=== PATIENT | female | born 1940 | race Caucasian/White ===

== ENCOUNTER 2024-06-23 08:22 | Outpatient (CLI) | payer MEDICARE, BC, SELFPAY | END 2024-06-23 08:23 | disposition home or self-care (01) | LOC: AMB 06-24 04:24 | PROVIDERS: PCP Family Medicine; Visit Provider Family Medicine | DX: R53.1 Weakness (principal); R56.9 Unspecified convulsions; U07.1 COVID-19 | CPT/HCPCS: A0425; A0427 ==

== ENCOUNTER 2024-06-23 09:00 | Emergency (ER) | payer MEDICARE, BC, SELFPAY ==
[2024-06-23 09:10] VITALS: BP 116/66; PULSE 60; RESP 16; TEMP 36.2; O2SAT 96; BMI 22.3
--- NOTE | 2024-06-23 09:48 | ED_ITS ---
HPI - General Adult General Chief complaint: Weakness Stated complaint: +Covid, passed out Time Seen by Provider: 06/23/24 09:48 History of Present Illness HPI narrative: pt has had covid since saturday, is on paxlovid. concerned pt may have had a seizure this am . per ems daughter saw seizure activity that lasted a few seconds, arms shook and eyes rolled. pt was talking right after that. pt c/o weakness and diarrhea today. 84-year-old woman presenting to the emergency department with concern of seizure. Does not have a seizure history. Initiated on Paxlovid following diagnosis of COVID 3 days ago. Has been feeling more weak along with diarrhea today. Has not had of measured fever. No chest pain or shortness of breath. Around the time of bathroom in seems to have passed out briefly and shock. Was very quickly at prior level of alertness; not demonstrating postictal activity as described. She is not complaining of significant abdominal pain. Related Data Home Medications ?Medication ?Instructions ?Recorded ?Confirmed metoprolol succinate 25 mg mg PO 08/01/23 07/08/24 tablet,extended release 24 hr multivitamin 1 tab PO QAM 08/01/23 07/08/24 tocophersolan (vitamin E TPGS) PO 08/01/23 07/08/24 atorvastatin 20 mg tablet mg PO 07/08/24 07/08/24 Allergies Allergy/AdvReac Type Severity Reaction Status Date / Time milk Allergy Verified 07/08/24 09:37 Sulfa (Sulfonamide Allergy Verified 07/08/24 09:37 Antibiotics) Review of Systems Status of ROS: Reports: 6 or more systems reviewed and unremarkable except as noted in History and below Exam Narrative: Exam Narrative: Pleasant. NAD. Skin is warm and dry. Extremities are well perfused without edema. Lungs with trace crepitus generally. Breath sounds throughout. Heart in slowed rate. Regular rhythm. Cranial nerves 2-12 are intact. No nystagmus. Pupils are equal and briskly reactive. Moving all extremities without difficulty. Appears to have good strength. Abdomen is soft and nontender normal bowel sounds. Responding quickly to questions. Const: Vital Signs, click to edit/add: Vital Signs - 24 hr 06/23/24 09:10 06/23/24 10:57 Temperature 97.2 F L Pulse Rate [Pulse Oximeter] 60 Pulse Rate [orthos tatic lying Right] 58 L Pulse Rate [orthos tatic sitting] 61 Pulse Rate [orthos tatic standing] 64 Respiratory Rate 16 Blood Pressure [Ri ght Upper Arm] 116/66 Blood Pressure [or thostatic lying Ri ght Arm] 126/61 Blood Pressure [or thostatic sitting] 123/78 Blood Pressure [or thostatic standing ] 115/61 Pulse Oximetry 96 Oxygen Delivery Me thod Room Air Documenting provider has reviewed patient's vital signs: yes Course Vital Signs Vital signs: Initial Vital Signs Temperature 97.2 F L 06/23/24 09:10 Temperature Source Temporal Artery Scan 06/23/24 09:10 Pulse Rate 60 06/23/24 09:10 Respiratory Rate 16 06/23/24 09:10 Blood Pressure 116/66 06/23/24 09:10 Blood Pressure Mean 82 06/23/24 09:10 Blood Pressure Position Supine 06/23/24 09:10 Pulse Oximetry 96 06/23/24 09:10 Oxygen Delivery Method Room Air 06/23/24 09:10 Vital Signs Temperature 97.2 F L 06/23/24 09:10 Pulse Rate 60 06/23/24 09:10 Respiratory Rate 16 06/23/24 09:10 Blood Pressure 116/66 06/23/24 09:10 Pulse Oximetry 96 06/23/24 09:10 Oxygen Delivery Method Room Air 06/23/24 09:10 Temperature 97.2 F L 06/23/24 09:10 Pulse Rate 58 L 06/23/24 10:57 Respiratory Rate 16 06/23/24 09:10 Blood Pressure 126/61 06/23/24 10:57 Pulse Oximetry 96 06/23/24 09:10 Oxygen Delivery Method Room Air 06/23/24 09:10 Medications Administered Medications: Discontinued Medications Generic Name Dose Route Start Last Admin Trade Name Freq PRN Reason Stop Dose Admin Sodium Chloride 1,000 mls @ 1,000 mls/hr 06/23/24 10:27 06/23/24 11:03 0.9 % Sodium Chloride 1000 Ml IV 06/23/24 11:26 1,000 mls/hr .Q1H ONE Administration Medical Decision Making MDM Narrative Medical decision making narrative: Does appear to have been brief shaking related to syncope or near-syncope. Complicated perhaps by metoprolol. Likely with some degree of dehydration. She would appreciate IV fluids. Would monitor for arrhythmia. Initial EKG as noted below. Discussed checking labs otherwise but does not sound to have had such copious diarrhea that likely altered chemistries. Not noted to have significant history of anemia or needing electrolyte/potassium replacement/supplementation. Symptoms and timing is convincing enough that I do not think needs head imaging. Does not have headache or persistent symptoms to suggest other intracranial pathology. Initiated IV. Monitor the emergency department without further event. Feels improved. See patient discharge plan for further discussion Medical Records Medical records reviewed: Yes I reviewed the patient's medical records ECG Data Attestation: I personally reviewed and interpreted this ECG as follows: (Sinus bradycardia - does appear to be a right bundle-branch block. Rate of 57. No priors for comparison) Discharge Plan Discharge Clinical Impression: Syncope Patient Disposition: Home w/ Parent or Adult Condition: Improved Additional Instructions: I am happy you're feeling better. Stay well-hydrated. This sounds to have been possibly an orthostatic syncopal event on top of illness. I do not think you had a seizure. Your EKG other than being a little slow in heart rate, which can be explained by metoprolol, is relatively unremarkable. Be seen/return for repeat event, new and focal weakness, chest pain, worsening shortness of breath. Prescriptions: No Action metoprolol succinate 25 mg tablet extended release 24 hr PO multivitamin Tablet 1 tab PO QAM tocophersolan (vitamin E TPGS) PO atorvastatin 20 mg tablet PO Follow Up/Referrals: Deepa Villagran MD [Primary Care Provider] - Stand Alone Forms: [employer] Info Instructions
[2024-06-23 10:57] VITALS: BP 115/61; BP 123/78; BP 126/61; PULSE 58; PULSE 61; PULSE 64
[2024-06-23] MEDS: 0.9 % SODIUM CHLORIDE 1000 ml 1,000 ML IV (11:03)
--- OUTSIDE RECORDS SUMMARY | 2024-06-23 11:03 | XMS_ITS | Clinical Summary ---
Author Organization [facility] Address [place], [place] [address] Care Team Providers Care Rn Eligibility Name Role Phone Deepa Villagran MD Primary Care Provide r Allergies Active Allergy Reactions Criticality Noted Date Comments Lactose Cough 04/22/2008 Milk Runny Nose 05/12/2018 Pollen Extracts Other - Describe In Comment Field 05/22/2010 Sulfa (Sulfonamide Antibiotics) Rash Medium 05/04/2017 Medications Medication Sig Dispensed Refills Start Date End Date Status multivitamin (MVI) tablet Take 1 tablet by mouth once daily. 0 05/02/2011 Active vitamin E 800 unit capsule Take 800 Units by mouth once daily. 0 12/07/2013 Active nitroglycerin (NITROSTAT) 0.[address] 0.4 mg under the tongue every 5 minutes if needed. 04/24/2022 Active metoprolol succinate (TOPROL XL) 25 mg Sustained-Release tabletIndications:Isaiah ral valve prolapse Take 1 Tablet (25 mg) by mouth once daily. 90 Tablet 3 2024 Active atorvastatin (LIPITOR) 20 mg tabletIndications:Isaiah ral valve prolapse Take 1 Tablet (20 mg) by mouth at bedtime. 90 Tablet 3 2024 Active cetirizine (ZYRTEC) 10 mg tabletIndications:[place] allergic rhinitis due to pollen Take 1 Tablet (10 mg) by mouth once daily. 90 Tablet 3 2024 Active Active Problems Problem Noted Date Diagnosed Date Heart palpitations 12/24/2017 Hyperlipidemia 12/24/2017 Osteoarthritis of hip 06/02/2009 Resolved Problems Problem Noted Date Diagnosed Date Resolved Date Mild mitral valve prolapse 03/22/2015 0 12/24/2017 Encounters Date Type Department Care Team Description 06/23/2024 Nurse Triage [facility] [address] [place] [address] Deepa Villagran MD Seizure 06/20/2024 Nurse Triage [facility] [address] [place] [address] Deepa Villagran MD Questions from Last 3 Months Immunizations Name Administration Dates Next Due AMB INFLUENZA IIV3 (AGE 65+ YRS) PF (Flu Clinic Only) 10/13/2019 Amb Influenza, Inact (High-d ose) (Flu Clinic Only) 09/03/2014 Amb Influenza, Inactivated A IIV4 (Age 65+ Years) Preserv Free 08/23/2020 COVID-19 vaccine (Moderna 50 mcg/0.5mL) 12YO+ BIVALENT PF, MDV 08/23/2023,04/01/2023,08/20/2022 COVID-19 vaccine (ViaWest-Bio NTech 30mcg/0.3mL) 12YO+ JEFFREY-SUCROSE PF, MDV 03/09/2022 Hepatitis A (Adult) 06/17/2006,08/14/2005 Hepatitis A, Unspecified 06/17/2006,08/14/2005 Hepatitis B (Adult) 06/17/2006,01/28/2006,2004 Hepatitis B, Unspecified 06/17/2006 Influenza A (H1N1), Inactivated 11/22/2009 Influenza A (H1N1), Inactiva shane (Age >=3 Years) 11/22/2009 Influenza Virus, Unspecified 08/02/2018, 09/01/2017,09/03/2016,08/02,09/03/2013,09/01/2012,09/01/2012 ,09/11/2011,09/01/2009,09/01/2009,12/2007,10/02/2008,10/02/2006, 3,10/02/2002 Influenza, High-dose Inactivated 09/03/2016,12/2014,09/03/2013 Influenza, High-dose Quadriv alent Inactivated 09/08/2021 Influenza, IIV3 (Age >=3 years) 09/30/20 17,09/01/2017,09/11/2011,09/01,10/03/2006,10/12/2003,10/02/2002 ,11/10/2001,11/12/2000 Influenza, IIV4 (=>6mos) MDV 08/29/2017,09/10/20 16,08/29/2015 Influenza, Inactivated AIIV4 (Age 65+ Years) Preserv Free 09/06/2022 Meningococcal Vaccine (Menomune) 11/14/2005 Meningococcal, Unspecified 11/14/2005 Pneumococcal Poly,23-Valent (Pneumovax) 08/14/2005 Pneumococcal conj 13-Valent (Prevnar 13) 12/24/2017,02/13/2016 RSV, Recombinant ADJ Reconst ituted (Arexvy 120MCG/0.5mL) 11/08/2023 TD, UNSPECIFIED 11/14/2005 Td (Age >=7 Years) 11/14/2005 Td, Preservative Free (age >= 7 Years) 5 Tdap 04/03/2012 Typhoid (injectable) 08/20/2007,08/14/2005 Typhoid (oral) 04/03/2012 Typhoid, Unspecified 08/20/2007,08/14/2005 Typhus, Historical 08/20/2007,08/14/2005 Yellow Fever 08/14/2005 Yellow Fever, Unspecified Formulation 08/14/2005 Zoster (Shingrix-RZV, recombinant) 09/22/2019, Zoster (Zostavax-ZVL, live) 08/20/2007 Zoster, Unspecified Formulation 10/22/2023(Defer red: Patient Refused) Family History Medical History Relation Name Comments Sudden Brother PA Cancer-breast Other 2 female cousi ns Relation Name Status Comments Brother Other Social History Tobacco Use Types Packs/Day Years Used Date Smoking Tobacco: Never Smokeless Tobacco: Never Tobacco Cessation:Counseling Given: Yes Alcohol Use Standard Drinks/Week Comments Yes 2 (1 standard drink = 0.6 oz pur e alcohol) PHQ-2 Answer Date Recorded PHQ-2 TOTAL SCORE 0 2024 Social Connections Answer Date Recorded Frequency of Communication with Friends and Fami ly 0 2024 Alcohol Use Answer Date Recorded How often do you have a drink containing alcohol ? 2 02/04/2023 How many drinks containing a lcohol do you have on a typical day when you are drinking? 0 02/04/2023 How often do you have five or more drinks on one occasion? 0 02/04/2023 Financial Resource Strain Answer Date R ecorded Difficulty of Paying Living Expenses 3 2024 Difficulty of Paying Living Expenses Not on file 2024 Food Insecurity Answer Date Recorded Worried About Running Out of Food in the Last Ye ar 1 2024 Transportation Needs Answer Date Record ed Lack of Transportation (Medical) 1 2024 Housing Stability Answer Date Recorded Unable to Pay for Housing in the Last Year 1 2024 Sex and Gender Information Value Date Recorded Sex Assigned at Not on file Gender Identity Not on file Sexual Orientation Not on file Obstetrics History Last Filed Vital Signs Vital Sign Reading Time Taken Comments Blood Pressure 132/73 2024 9:14 AM CDT Pulse 61 2024 9:14 AM CDT Temperature 36.6 ??C (97.9 ??F) 02/04/2023 10:[address] Respiratory Rate 18 01/25/2020 8:19 AM [employer] Oxygen Saturation 98% 2024 9:14 AM CDT Inhaled Oxygen Concentration - - Weight 54.4 kg (120 lb) 2024 9:14 AM CDT Height 154.7 cm (5' 0.9) 2024 9:14 AM CDT Body Mass Index 22.75 2024 9:14 AM CDT Plan of Treatment Health Maintenance Due Date Last Done Comments Tetanus booster 04/03/2022 04/03/2012, 11/01, 11/14/2005, Additional history exists COVID-19 vaccine series ( season) 2024 02/07/2024, 08/23/2023, 04/01/2023, Additional history exists Influenza for age 65+ 08/02/2024 09/06/2022 , 09/08/2021, 08/23/2020, Additional history exists BMI (ht and wt on same day) for age 18+ 2025 2024, 10/22/2023, 05/07/2022, Additional history exists Depression screening for age 12+ 2025 2024, 03/15/2023, 02/14/2021, Additional history exists Medicare Wellness for age 65+ 03/18/2025 2024, 03/15/2023, 12/24/2017 DEXA/DXA scan for age 65+ Addressed 12/19/2011 (Dec lined) Overridden with the intention of not completing the topic Tdap Completed 04/03/2012 Pneumococcal series for age 65+ Completed 12/24/2017, 02/13/2016, 08/14/2005 Zoster (shingles) series for age 50+ Completed 09/22/2019, 06/26/2019, 08/20/2007 Care Teams Rn Eligibility Relationship Specialty Start Date End Date Deepa Villagran MD [address] [place] [address] PCP - General Family Practice 06/02/13
--- OUTSIDE RECORDS SUMMARY | 2024-06-23 11:04 | XMS_ITS ---
Author Organization [facility] Address [address] [place] [id number] Care Team Providers Care Superintendent Of Schools Name Role Phone Unavailable Unavailable Unavailable Surgery Details Not on file Complications Check Surgery Details section. Procedure Estimated Blood Loss Check Surgery Details section. Procedure Findings Check Surgery Details section. Procedure Specimens Taken Check Surgery Details section.
--- OUTSIDE RECORDS SUMMARY | 2024-06-23 11:04 | XMS_ITS | Clinical Summary ---
Author Organization [facility] Address [address] [place] [address] Care Team Providers Care Information Technology Manager Name Role Phone Elsewhere, Pcp Primary Care Provider Unavailabl e Source Comments Patient records contain information from all sites at [facility]. For routine questions regarding patient records, call [phone] during business hours, M-F 8:00 AM - 5:00 PM Central Time. Record requests for emergency care only can be directed to [phone] at any time.[facility] Allergies Active Allergy Reactions Criticality Noted Date Comments Lactose Cough Low 04/22/2008 Pollen Extracts Other (see comments) Low 05/22/2010 Sulfa (Sulfonamide Antibiotics) Rash Medium 01/2017 Medications Medication Sig Dispensed Refills Start Date End Date Status calcium carbonate-vitamin D3 1,500 mg (600 mg calcium)-10 mcg (400 Unit) per tablet Take 1 tablet by mouth daily. 05/23/2010 Active multivitamin tablet Take 1 tablet by mouth daily. 01/23/2013 Active vitamin E 400 unit capsule Take 1 capsule by mouth daily. 01/23/2013 Active alendronate (FOSAMAX) 70 mg tablet Take 1 tablet (70 mg total) by mouth every 7 (seven) days. Take with 8oz of water, on an empty stomach. Remain upright for 30min. 4 tablet 11 03/05/2022 Active loratadine (CLARITIN) 10 mg tabletIndications:Con gestion Nasal,Allergy Seasonal Take 1 tablet (10 mg total) by mouth daily. 90 tablet 3 04/04/2022 Active metoprolol succinate (TOPROL-XL) 25 mg 24 hr tablet Take 1 tablet (25 mg total) by mouth daily. Do not crush or chew. 90 tablet 3 04/24/2022 Active atorvastatin (LIPITOR) 20 mg tablet Take 1 tablet (20 mg total) by mouth daily. 90 tablet 3 04/24/2022 Active nitroglycerin (NITROSTAT) 0.[address] 1 tablet (0.4 mg total) under the tongue every 5 (five) minutes as needed for chest pain. May repeat every 5 minutes for up to 3 doses 20 tablet 3 04/24/2022 Active Active Problems Problem Noted Date Diagnosed Date Congestion Nasal 02/28/2022 Overview (02/28/2022): ?? Chronic nasal congestion and sinus headaches ?? Managed with oral antihistamine ?? Does not tolerate nasal sprays or rinses Apnea Sleep Obstructive 02/28/2022 Overview (02/28/2022): ?? Supine-related MICHAELA ?? Managed with positional therapy ?? PSG 2009 with AHI 6/hr ?? Overnight ox 2014 was normal with positional therapy Palpitations 02/28/2022 Overview (02/28/2022): ?? Chronic h/o intermittent palpitations ?? Managed with atenolol 25 mg daily ?? Work up in cardiology, including holter, benign other than PVCs Discomfort Chest 02/28/2022 Overview (02/28/2022): ?? Chest tightness eval 02/21/21 ?? Echo: EF 65%. Mildly thickened mitral vlave with mild-moderate mitral valve regurgitation ?? NM cardiac perfusion study: normal perfusion study; no stress-induced ischemia ?? ECG: sinus bradycardia with sinus arrhythmia; RBBB ?? Holter: basic rhythm sinus with sinus arrhythmia; rare PVCs and ectopic atrial rhythm ?? Cardiology consult: possible component of Microvascular/spasm; due to infrequent episodes, recommended ongoing observation. Nitro rx provided for chest discomfort last >15 minutes Hyperlipidemia 10/17/2015 Overview (02/28/2022): ?? On ASA 81 mg and atorvastatin 10 mg daily ?? Lifelong nonsmoker ?? No h/o cardiovascular event ?? Family history: 2 younger brothers that both from MIs in their late 60s. Osteopenia 09/27/2015 Overview (02/28/2022): ?? Managed with vit D and calcium supplement ?? DEXA 2018: lowest T-score of -2.1 at left femur neck with elevated FRAX scores of 20.2% MO and 6.8% hip ?? No known family h/o osteoporosis ?? Lifelong non smoker Cancer Breast Family History 10/06/2010 Overview (02/28/2022): ?? S/p prophylactic B/L mastectomy, 1989 ?? BRCA 1 and BRCA 1 negative, 2009 Resolved Problems Problem Noted Date Diagnosed Date Resolved Date Hyperkalemia 02/27/2021 02/28/2022 Elevated Liver Enzyme Abnorm al, Aspartate Transaminase, Serum Glutamic-Oxaloacetic Transaminase, Alanine Transaminase 05/29/201601/02 Mitral Valve Prolapse 10/16/20042021 Overview (02/28/2022): ?? Echo 01/2021: normal left ventricular chamber size. EF 65%. Normal right ventricular chamber size and systolic function. Mildly thickened mitral valve with mild-moderate mitral valve regurgitation. Immunizations Name Administration Dates Next Due H1N1 All Forms 11/22/2009 H1N1 Inj 11/22/2009 HZV (ZOSTAVAX) 08/20/2007 HepA Adult 06/17/2006,08/14/2005 HepA, Unspecified 06/17/2006,08/14/2005 HepB Adult 06/17/2006,01/28/2006,11/14/2005 HepB, Unspecified 06/17/2006 Influenza Split 09/03/2016, 5,09/03/2013,09/01,09/01/2009,10/02/2008,10/02/2006 ,10/12/2003,10/02/2002 Influenza TIV (IM) 10/13/2019,09/01/2017, 011 Influenza high dose QV(65 ye ars or older) (PF) 09/08/2021 Influenza, Injectable, Quadrivalent 08/29/2017,1 ,08/29/2015 Influenza, Quadrivalent, Adj uvanted, Preservative Free 08/23/2020 Influenza, Seasonal, Injectable 09/01/20 17,09/11/2011,09/01/2010,10/03,10/12/2003,10/02/2002,11/10/2001 ,11/12/2000 Influenza, Unspecified 08/02/2018,2011,09/01/2009,10/02 MPSV4 11/14/2005 Meningococcal ACWY, Unspecified 11/14/2005 PCV13 02/13/2016 PPSV23 08/14/2005 RZV (SHINGRIX) 02/21/2021(Deferred: Other - will get locally at home),09/22/2019,06/26/2019 SARS-COV-2 (COVID-19) - PFIZ ER (Discontinued)(12 years or older) 02/06/2021,01/11/2021 Td (Adult), adsorbed 11/14/2005 Td Preservative Free (TENIVA C, DECAVAC) 11/14/2005 Td, (Adult) Unspecified 11/14/2005 Tdap 04/03/2012 Ty21a (oral) 04/03/2012 TyVi (inj) 08/20/2007,08/14/2005 Typhoid, Unspecified 08/20/2007,08/14/2005 Typhus (discontinued) 08/20/2007,08/14/2005 YF 08/14/2005 YF, Unspecified 08/14/2005 influenza high dose (65 year s or older) (PF) 09/03/2016,08/02/2015,09/03/2014,09/03 Family History Medical History Relation Name Comments Asthma Brother 1 Long Coronary artery disease Brother 1 Long 65 Hyperlipidemia Brother 1 Long Coronary artery disease Brother 2 Christiano 67 Skin cancer Father Albert Ross Parkinsonism Mother's Brother Jose F Relation Name Status Comments Brother 1 Long Brother 2 Christiano Father Albert Mother's Brother Jose F Social History Tobacco Use Types Packs/Day Years Used Date Smoking Tobacco: Never Smokeless Tobacco: Never Alcohol Use Standard Drinks/Week Comments Yes 1 (1 standard drink = 0.6 oz pur e alcohol) Humiliation, Afraid, Rape, and Kick questionnair e Answer Date Recorded Within the last year, have y ou been afraid of your partner or ex-partner? No 02/24/2022 Within the last year, have y ou been humiliated or emotionally abused in other ways by your partner or ex-partner? No Within the last year, have y ou been kicked, hit, slapped, or otherwise physically hurt by your partner or ex-partner? No 02/24/2022 Within the last year, have y ou been raped or forced to have any kind of sexual activity by your partner or ex-partner? No 02/24/2022 Social Connection and Isolat ion Panel [NHANES] Answer Date Recorded In a typical week, how many times do you talk on the phone with family, friends, or neighbors? More than three times a week 02/24/2022 How often do you get togethe r with friends or relatives? Once a week 02/24/2022 How often do you attend chur ch or alevism services? Never 02/24/2022 Do you belong to any clubs o r organizations such as jain groups, unions, fraternal or athletic groups, or school groups? Yes 02/24/2022 How often do you attend meet ings of the clubs or organizations you belong to? More than 4 times per year 02/24/2022 Are you , , di vorced, , never , or living with a partner? 02/24/2022 AUDIT-C Answer Date Recorded Q1: How often do you have a drink containing alc ohol? 2-4 times a month 02/24/2022 Q2: How many drinks containi ng alcohol do you have on a typical day when you are drinking? 1 or 2 02/24/2022 Q3: How often do you have si x or more drinks on one occasion? Never 02/24/2022 Overall Financial Resource Strain (CARDIA) Answe r Date Recorded How hard is it for you to pa y for the very basics like food, housing, medical care, and heating? Not hard at all 02/24/2022 PHQ-2 Answer Date Recorded PHQ-2 Score 0 02/28/2022 [facility] - Occupational Stress Questionnaire Answer Date Recorded Do you feel stress - tense, restless, nervous, or anxious, or unable to sleep at night because your mind is troubled all the time - these days? Only a little 02/24/2022 Exercise Vital Sign Answer Date Recorde d On average, how many days pe r week do you engage in moderate to strenuous exercise (like a brisk walk)? 3 days 02/24/2022 On average, how many minutes do you engage in exercise at this level? 30 min 02/24/2022 Hunger Vital Sign Answer Date Recorded Within the past 12 months, y ou worried that your food would run out before you got the money to buy more. Never true 02/25/20 22 Within the past 12 months, t he food you bought just didn't last and you didn't have money to get more. Never true 02/24/2022 PRAPARE - Transportation Answer Date Re corded In the past 12 months, has l ack of transportation kept you from medical appointments or from getting medications? No 01/31 In the past 12 months, has l ack of transportation kept you from meetings, work, or from getting things needed for daily living? No 02/24/2022 Housing Stability Vital Sign Answer Jose e Recorded In the last 12 months, was t here a time when you were not able to pay the mortgage or rent on time? No 02/24/2022 In the last 12 months, how many places have you lived? 1 02/24/2022 In the last 12 months, was t here a time when you did not have a steady place to sleep or slept in a skilled nursing (including now)? No 02/24/2022 Nutrition Answer Date Recorded Nutrition: EVOO Fat Source Yes 02/24 On average, how many serving s of fruits and vegetables do you eat per day (serving size is equal to 1 cup or approximately the size of a tennis ball)? 4-5 02/24/2022 Dental Answer Date Recorded Dental: Regular Dentist Yes 02/17/20 Employment Answer Date Recorded Employment status Retired 02/24/2022 Education Answer Date Recorded What is the highest level of school you have completed or the highest degree you have received? Doctorate 02/16/2021 Sex and Gender Information Value Date Recorded Sex Assigned at Female 12/28/2018 7:38 PM RADIOLOGIC TECHNOLOGIST MAMMOGRAM Gender Identity Female 12/28/2018 7:38 PM RADIOLOGIC TECHNOLOGIST MAMMOGRAM Sexual Orientation Straight 12/28/2018 7: 38 PM RADIOLOGIC TECHNOLOGIST MAMMOGRAM Last Filed Vital Signs Vital Sign Reading Time Taken Comments Blood Pressure 122/77 04/24/2022 12:04 PM CDT Pulse 58 04/24/2022 12:04 PM CDT Temperature 36.6 ??C (97.9 ??F) 01/02/2019 8:00 AM CS T Respiratory Rate - - Oxygen Saturation - - Inhaled Oxygen Concentration - - Weight 58 kg (127 lb 13.9 oz) 04/24/2022 12:04 P M CDT Height 158 cm (5' 2.21) 04/24/2022 12:04 PM CDT Body Mass Index 23.23 04/24/2022 12:04 PM CDT Plan of Treatment Health Maintenance Due Date Last Done Comments DTaP,Tdap,and Td Vaccines (2 - Td or Tdap) 04/03/2022 04/03/2012, 11/14/2005, 11/14/2005, Additional history exists Depression Screening (Annual PHQ-2) 12/02/2023 Fall Risk Screen (Annual) 12/02/2023 COVID-19 Vaccine (2022-2 4 season) 2024 02/07/2024, 08/23/2023, 04/01/2023, Additional history exists Influenza Vaccine (#1) 2024 , 09/08/2021, 08/23/2020, Additional history exists Hepatitis A Vaccines Completed 06/17/2006, 06/17/2006, 08/14/2005, Additional history exists Hepatitis B Vaccines Completed 06/17/2006, 06/17/2006, 01/28/2006, Additional history exists Pneumococcal vaccine (65+ years) Completed 02/13/20 16, 08/14/2005 Zoster Vaccines Completed 09/22/2019, 06/02, 08/20/2007 Medical Devices Implanted Type Area Card Processing Clerk Device Identifier Shelf Expiration Date Model / Serial / Lot Conversions - Default Historical Implant Device Implanted:2015 (Quantity not on file) Hip Implant Hip Description:Device Status Te xt - Hip Imp. Right hip replacement done in [facility]. Misc Other Misc Other Breast Description:Silicon Care Teams Information Technology Manager Relationship Specialty Start Date End Date Elsewhere, Pcp PCP - General Internal Medicine 02/09/22
--- OUTSIDE RECORDS SUMMARY | 2024-06-23 11:04 | XMS_ITS | Encounter Summary ---
Author Organization [facility] Address [address] [place] [address] Care Team Providers Care Primer Powder Blender Wet Name Role Phone Elsewhere, Pcp Primary Care Provider Unavailabl e Encounter Details Date Type Department Care Team (Late st Contact Info) Description 01/26/2013 Historical Ophthalmology RST OPH Jeff Huizar M.D. [address] [place] [phone] Social History Tobacco Use Types Packs/Day Years Used Date Smoking Tobacco: Never Assessed Sex and Gender Information Value Date Recorded Sex Assigned at Female 12/28/2018 7:38 PM GUM ROLLING MACHINE OPERATOR Gender Identity Female 12/28/2018 7:38 PM GUM ROLLING MACHINE OPERATOR Sexual Orientation Straight 12/28/2018 7: 38 PM GUM ROLLING MACHINE OPERATOR documented as of this encounter Progress Notes * Jeff Huizar M.D. - 01/26/2013 9:27 AM CST Eye General CHIEF COMPLAINT Blurred vision and/or incorrect prescription in right eye HISTORY OF PRESENT ILLNESS Blurred vision; right eye; x 7 months ; constantly; symptoms are mild. She reports getting a new eyeglass prescription last summer and never being happy with the vision in her right eye, near>distance. Denies flashes, floaters and diplopia. Denies ocular pain. IMPRESSION / REPORT / PLAN #1 refractive error rx given #2 right epiretinal membrane no rx #3 cataracts becoming significant. no rx yet. DIAGNOSIS #1 refractive error #2 right epiretinal membrane #3 cataracts CD Reports - EYEGEN Id: [id number] Status: Fnl documented in this encounter Plan of Treatment Not on file documented as of this encounter Visit Diagnoses Not on filedocumented in this encounter Additional Health Concerns Infection Onset Date Last Indicated Resolved Time COVID19 Pending 02/21/2021 02/21/2021 02/21/2021 8 :00 PM CDT documented as of this encounter Care Teams Primer Powder Blender Wet Relationship Specialty Start Date End Date Elsewhere, Pcp PCP - General Internal Medicine 02/09/22 documented as of this encounter
--- OUTSIDE RECORDS SUMMARY | 2024-06-23 11:04 | XMS_ITS | Referral Summary ---
Author Organization [facility] Address [address] [place] [id number] Care Team Providers Care Packing Checker Name Role Phone Elsewhere, Pcp Primary Care Provider Unavailabl e Source Comments Patient records contain information from all sites at [facility]. For routine questions regarding patient records, call [phone] during business hours, M-F 8:00 AM - 5:00 PM Central Time. Record requests for emergency care only can be directed to [phone] at any time.[facility] Allergies Active Allergy Reactions Criticality Noted Date [...] (65 year s or older) (PF) 09/03/2016,08/02/2015,09/03/2014,09/03 Social History Tobacco Use Types Packs/Day Years [...] 02/24/2022 How often do you attend chur or spiritism services? Never 02/24/2022 Do you belong to any clubs o r organizations such as mosque groups, unions, fraternal or athletic groups, or [...] Answer Date Recorded PHQ-2 Score 0 02/28/2022 [facility] - Occupational [...] place to sleep or slept in a snf (including now)? No 02/24/2022 Nutrition Answer Date [...] Sex Assigned at Female 12/28/2018 7:38 PM ASSOCIATE DEAN Gender Identity Female 12/28/2018 7:38 PM ASSOCIATE DEAN Sexual Orientation Straight 12/28/2018 7: 38 PM ASSOCIATE DEAN Last Filed Vital Signs Vital Sign Reading [...] 04/24/2022 12:04 PM CDT Plan of Treatment Not on file Medical Devices Implanted Type Area Net Trainer Device Identifier Shelf Expiration Date Model / Serial / Lot Conversions - Default Historical Implant Device Implanted:2015 (Quantity not on file) Hip Implant Hip Description:Device Status Te xt - Hip Imp. Right hip replacement done in [facility]. Misc Other Misc Other Breast Description:Silicon Care Teams Packing Checker Relationship Specialty Start Date End Date Elsewhere, Pcp PCP - General Internal Medicine 02/09/22
== END 2024-06-23 11:40 | disposition home or self-care (01) ==
PROVIDERS: Emergency Provider Family Medicine; PCP Family Medicine
DX: R55 Syncope and collapse (principal)
CPT/HCPCS: 93005; 99283; 99284; J7030

== ENCOUNTER 2025-03-18 17:34 | Emergency (ER) | payer MEDICARE, BC, SELFPAY ==
--- OUTSIDE RECORDS SUMMARY | 2025-03-18 17:37 | XMS_ITS | Clinical Summary ---
Author Organization [facility] Address [address] [place] [id number] Care Team Providers Care Design Maker Name Role Phone Deepa Villagran MD Primary Care Provide r Allergies Active Allergy Reactions Criticality Noted Date Comments Lactose Cough 04/22/2008 Milk Runny Nose 05/12/2018 Pollen Extracts Other - Describe In Comment Field 05/22/2010 Sulfa (Sulfonamide Antibiotics) Rash Medium 05/04/2017 Medications multivitamin (MVI) tablet Take 1 tablet by mouth once daily. 0 1 Active vitamin E 800 unit capsule Take 800 Units by mouth once daily. 0 4 Active nitroglycerin (NITROSTAT) 0.[address] 0.4 mg under the tongue every 5 minutes if needed. 2 Active atorvastatin (LIPITOR) 20 mg tabletIndicati ons:Mitral valve prolapse Take 1 Tablet (20 mg) by mouth at bedtime. 90 Tablet 3 4 Active metoprolol succinate (TOPROL XL) 25 mg Sustained-Rele ase tabletIndicati ons:Mitral valve prolapse Take 1 Tablet (25 mg) by mouth once daily. 90 Tablet 5 Active cetirizine (Allergy Relief (cetirizine)) 10 mg tabletIndicati ons:Seasonal allergic rhinitis due to pollen TAKE ONE TABLET BY MOUTH ONCE DAILY (IN PLACE OF LORATIDINE) 30 Tablet 5 Active cetirizine (ZYRTEC) 10 mg tabletIndicati ons:Seasonal allergic rhinitis due to pollen Take 1 Tablet (10 mg) by mouth once daily. 90 Tablet 3 4 03/16/20 25 Discontinued Active Problems Problem Noted Date Diagnosed Date Heart palpitations 12/24/2017 Hyperlipidemia 12/24/2017 Osteoarthritis of hip 06/02/2009 Resolved Problems Problem Noted Date Diagnosed Date Resolved Date Mild mitral valve prolapse 03/22/2015 0 12/24/2017 Encounters Date Type Department Care Team Description 03/18/2025 Nurse Triage [facility] [address] [place] [address] Deepa Villagran MD Hip Pain/problem 03/15/2025 Refill [facility] [address] [place] [address] Deepa Villagran MD Refill Request (Allergy Relief (Cetirizine)) 01/21/2025 Refill [facility] [address] [place] [address] Deepa Villagran MD Refill Request (Metoprolol Succinate) from Last 3 Months Immunizations Immunization Administration Dates Next Due AMB INFLUENZA IIV3 (AGE 65+ YRS) PF (Flu Clinic Only) 10/13/2019 Amb Influenza, Inact (High-d ose) (Flu Clinic Only) 09/03/2014 Amb Influenza, Inactivated A IIV4 (Age 65+ Years) Preserv Free 08/23/2020 COVID-19 vaccine (Moderna 50 mcg/0.5mL) 12YO+ BIVALENT PF, MDV 08/23/2023,04/01/2023,08/20/2022 COVID-19 vaccine (Pfizer-Bio NTech 30mcg/0.3mL) 12YO+ JEFFREY-SUCROSE PF, MDV 03/09/2022 [...] AIIV4 (Age 65+ Years) Preserv Free 09/06/2022 Influenza, Inactivated IIV3 (Age 65+ Years) Preserv Free 09/30/2024 Meningococcal Vaccine (Menomune) 11/14/2005 Meningococcal, Unspecified 11/14/2005 [...] Medical History Relation Name Comments Sudden Brother [place] Cancer-breast Other 2 female cousi ns Relation Name Status Comments Brother Other Social History Tobacco Use Types Packs/Day Years Used Date Smoking Tobacco: Never Smokeless Tobacco: Never Tobacco Cessation:Counseling Given: Yes Alcohol Use Standard Drinks/Week Comments Yes 2 (1 standard drink = 0.6 oz pur e alcohol) PHQ-2 Answer Date Recorded PHQ-2 TOTAL SCORE 0 2024 Social Connections Answer Date Recorded Do you often feel lonely or isolated from those around you? 0 2024 Alcohol Use Answer Date Recorded [...] file 2024 Food Insecurity Answer Date Recorded Do you worry your food will run out before you are able to buy more? 1 2024 Transportation Needs Answer Date Record ed Does lack of transportation keep you from medica l appointments? 1 2024 Does lack of transportation keep you from work, meetings or getting things that you need? 1 2024 Housing Stability Answer Date Recorded What is your housing situation today? 1 2024 Utilities Answer Date Recorded Do you have trouble paying f or utilities (for example, heat, electricity, water, phone)? 1 2024 Comments No Sex and Gender Information Value Date Recorded Sex Assigned at Not on file Legal Sex Female 6:30 AM TRAFFIC RECORDER Gender Identity Not on file Sexual Orientation Not on file Obstetrics History Last Filed Vital Signs Vital Sign Reading Time Taken Comments Blood Pressure 112/69 12/04/2024 1:10 PM TRAFFIC RECORDER Pulse 80 12/04/2024 1:10 PM TRAFFIC RECORDER Temperature 36.6 C (97.9 F) 02/04/2023 10:50 AM TRAFFIC RECORDER Respiratory Rate 18 01/25/2020 8:19 AM TRAFFIC RECORDER Oxygen Saturation 98% 12/04/2024 1:10 PM TRAFFIC RECORDER Inhaled Oxygen Concentration - - Weight 55.2 kg (121 lb 9.6 oz) 12/04/2024 1:10 P M TRAFFIC RECORDER Height 154.7 cm (5' 0.9) 2024 9:14 AM CDT Body Mass Index 23.05 2024 9:14 AM CDT Plan of Treatment Upcoming Encounters Date Type Department Care Team (Late st Contact Info) Description 04/13/2025 1:00 PM CDT Office Visit [facility] [address] [place] [address] Deepa Villagran MD [address] [place] [address] Health Maintenance Due Date Last Done Comments Tetanus booster 04/03/2022 04/03/2012, 11/01, 11/14/2005, Additional history exists BMI (ht and wt on same day) for age 18+ 2025 2024, 10/22/2023, 05/07/2022, Additional history exists Depression screening for age 12+ 2025 2024, 03/15/2023, 02/14/2021, Additional history exists Medicare Wellness for age 65+ 03/18/2025 2024, 03/15/2023, 12/24/2017 COVID-19 vaccine series ( season) 2025 09/24/2024, 02/07/2024, 08/23/2023, Additional history exists DEXA/DXA scan for age 65+ Addressed 12/19/2011 (Dec lined) Overridden with the intention of not completing the topic Tdap Completed 04/03/2012 Pneumococcal series for age 50+ Completed 12/24/2017, 02/13/2016, 08/14/2005 Zoster (shingles) series for age 50+ Completed 09/22/2019, 06/26/2019, 08/20/2007 RSV vaccine for adults or Completed 11/08/2023 Influenza Vaccine Completed 09/30/2024, , 08/23/2020, Additional history exists Insurance BLUE CROSS RESIGHINI BLUE MR [facility] ONLY Care Teams Design Maker Relationship Specialty Start Date End Date Deepa Villagran MD [address] [place], [place] [id number] PCP - General Family Practice 06/02/13
--- OUTSIDE RECORDS SUMMARY | 2025-03-18 17:37 | XMS_ITS | Encounter Summary ---
Author Organization [facility] Address [address] [place] [address] Care Team Providers Care Braille Teacher Name Role Phone Elsewhere, Pcp Primary Care Provider Unavailabl e Encounter Details Date Type Department Care Team (Late st Contact Info) Description 01/26/2013 Historical Ophthalmology RST OPH Jeff Huizar M.D. [address] [place] [phone] Social History Tobacco Use Types Packs/Day Years Used Date Smoking Tobacco: Never Assessed Comments Unknown Sex and Gender Information Value Date Recorded Sex Assigned at Female 12/28/2018 7:38 PM RIPENING ROOM HAND Legal Sex Female 4:19 PM RIPENING ROOM HAND Gender Identity Female 12/28/2018 7:38 PM RIPENING ROOM HAND Sexual Orientation Straight 12/28/2018 7: 38 PM RIPENING ROOM HAND documented as of this encounter Progress Notes [...] error #2 right epiretinal membrane #3 cataracts CDM Reports - EYEGEN Id: [id number] Status: Fnl documented in this encounter Plan of Treatment Not on file documented as of this encounter Visit Diagnoses Not on filedocumented in this encounter Additional Health Concerns Infection Onset Date Last Indicated Resolved Time COVID19 Pending 02/21/2021 02/21/2021 02/21/2021 8 :00 PM CDT documented as of this encounter Care Teams Braille Teacher Relationship Specialty Start Date End Date Elsewhere, Pcp PCP - General Internal Medicine 02/09/22 documented as of this encounter
--- OUTSIDE RECORDS SUMMARY | 2025-03-18 17:37 | XMS_ITS | Clinical Summary ---
Author Organization [facility] Address [address] [place] [address] Care Team Providers Care Weather Algorithm Scientist Name Role Phone Elsewhere, Pcp Primary Care Provider Unavailabl e Source Comments Patient records contain information from all sites at [facility]. For routine questions regarding patient records, call [phone] during business hours, M-F 8:00 AM - 5:00 PM Central Time. Record requests for emergency care only can be directed to [phone] at any time.[facility] Allergies Active Allergy Reactions Criticality Noted Date Comments Lactose Cough Low 04/22/2008 Pollen Extracts Other (see comments) Low 05/22/2010 Sulfa (Sulfonamide Antibiotics) Rash Medium 01/2017 Medications calcium carbonate-vitam in D3 1,500 mg (600 mg calcium)-10 mcg [...] 11 03/05/2022 Active loratadine (CLARITIN) 10 mg tabletIndicatio ns:Congestion Nasal,Allergy Seasonal Take 1 tablet (10 mg [...] Diagnosed Date Congestion Nasal 02/28/2022 Overview (02/28/2022): Chronic nasal congestion and sinus headaches Managed with oral antihistamine Does not tolerate nasal sprays or rinses Apnea 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 Mildly thickened mitral vlave with mild-moderate mitral valve regurgitation NM cardiac perfusion study: normal perfusion study; no stress-induced ischemia ECG: sinus bradycardia with sinus arrhythmia; RBBB Holter: basic rhythm sinus with sinus arrhythmia; rare PVCs and ectopic atrial rhythm Cardiology consult: possible component of Microvascular/spasm; due to infrequent episodes, recommended ongoing observation. Nitro rx provided for chest discomfort last >15 minutes Hyperlipidemia 10/17/2015 Overview (02/28/2022): On ASA 81 mg and atorvastatin 10 mg daily Lifelong nonsmoker No h/o cardiovascular event Family history: 2 younger brothers that both from MIs in their late 60s. Osteopenia 09/27/2015 Overview (02/28/2022): Managed with vit D and calcium supplement DEXA 2019: lowest T-score of -2.1 at left femur neck with elevated FRAX scores of 20.2% MO and 6.8% hip No known family h/o osteoporosis Lifelong non smoker Cancer Breast Family History 10/06/2010 Overview (02/28/2022): S/p prophylactic B/L mastectomy, 1989 BRCA 1 and BRCA 1 negative, 2009 Resolved Problems Problem Noted Date Diagnosed Date Resolved Date Hyperkalemia 02/27/2021 02/28/2022 Elevated Liver Enzyme Abnorm al, Aspartate Transaminase, Serum Glutamic-Oxaloacetic Transaminase, Alanine Transaminase 05/29/201601/02 Mitral Valve Prolapse 10/16/20042021 Overview (02/28/2022): Echo 01/2021: normal left ventricular chamber size. EF 65%. Normal right ventricular chamber size and systolic function. Mildly thickened mitral valve with mild- moderate mitral valve regurgitation. Immunizations Immunization Administration Dates Next Due H1N1 All Forms [...] 08/20/2007,08/14/2005 YF 08/14/2005 YF, Unspecified 08/14/2005 influenza trivalent high dose (HD)(PF) 1 ,08/02/2015,09/03/2014,09/03 Family History Medical History Relation Name Comments [...] often do you attend chur ch or caodaism services? Never 02/24/2022 Do you belong to [...] Answer Date Recorded PHQ-2 Score 0 02/28/2022 [facility] [place] of Occupat ional Health - Occupational Stress [...] place to sleep or slept in a fpc (including now)? No 02/24/2022 Nutrition Answer Date Recorded On average, how many serving s of fruits and vegetables do you eat per day (serving size is equal to 1 cup or approximately the size of a tennis ball)? 4-5 02/24/2022 Dental Answer Date Recorded Dental: Regular Dentist Unknown 03/10/20 25 Employment Answer Date Recorded Employment status Retired 02/24/2022 Education Answer Date Recorded What is the highest level of school you have completed or the highest degree you have received? Doctorate 02/16/2021 Comments Unknown Sex and Gender Information Value Date Recorded Sex Assigned at Female 12/28/2018 7:38 PM NURSE PRIVATE DUTY Legal Sex Female 4:19 PM NURSE PRIVATE DUTY Gender Identity Female 12/28/2018 7:38 PM NURSE PRIVATE DUTY Sexual Orientation Straight 12/28/2018 7: 38 PM NURSE PRIVATE DUTY Last Filed Vital Signs Vital Sign Reading Time Taken Comments Blood Pressure 122/77 04/24/2022 12:04 PM CDT Pulse 58 04/24/2022 12:04 PM CDT Temperature 36.6 C (97.9 F) 01/02/2019 8:00 AM NURSE PRIVATE DUTY Respiratory Rate - - Oxygen Saturation - [...] 04/03/2022 04/03/2012, 11/14/2005, 11/14/2005, Additional history exists COVID-19 Vaccine ( season) 2024 02/07/2024, 08/23/2023, 04/01/2023, Additional history exists Influenza Vaccine (#1) 2024 , 09/08/2021, 08/23/2020, Additional history exists Depression Screening (Annual PHQ-2) 12/02/2024 Fall Risk Screen (Annual) 12/02/2024 Hepatitis A Vaccines Completed 06/17/2006, 06/17/2006, 08/14/2005, Additional history exists Hepatitis B Vaccines Completed 06/17/2006, 06/17/2006, 01/28/2006, Additional history exists Pneumococcal vaccine (50+ years) Completed 02/13/2016, 08/14/2005 Zoster Vaccines Completed 09/22/2019, 06/02, 08/20/2007 RSV vaccine - (32-36 weeks) or 60+ years Completed 11/08/2023 IPV Vaccines Aged Out No longer eligi ble based on patient's age to complete this topic Medical Devices Implanted Type Area Legal Biller Device Identifier Shelf Expiration Date Model / Serial / Lot Conversions - Default Historical Implant Device Implanted:2015 (Quantity not on file) Hip Implant Hip Description:Device Status Te xt - Hip Imp. Right hip replacement done in [facility]. Misc Other Misc Other Breast Description:[employer] MEDICARE [employer] Care Teams Weather Algorithm Scientist Relationship Specialty Start Date End Date Elsewhere, Pcp PCP - General Internal Medicine 02/09/22
[2025-03-18 17:44] VITALS: BP 141/67; PULSE 72; RESP 18; TEMP 37.1; O2SAT 98; BMI 22.3
--- NOTE | 2025-03-18 17:58 | CRLHL7_ITS ---
For Patients: As a result of the Cures Act, medical imaging exams and procedure reports are released immediately into your electronic medical record. You may view this report before your referring provider. If you have questions, please contact your health care provider. INDICATION: Left lateral hip pain TECHNIQUE: Three views of the left hip FINDINGS/IMPRESSION: Normal alignment. No acute fracture or acute osseous abnormalities are visualized. Right hip arthroplasty present in appropriate position. No left hip fracture. The hip joint appears preserved. No significant degenerative change Dictated by lAlie Vallejo MD @ 03/18/2025 7:03:16 PM (Electronically Signed)
[2025-03-18] MEDS: IBUPROFEN 200 MG TABLET 600 MG PO (18:08)
--- NOTE | 2025-03-18 18:29 | ED.GENADULT ---
HPI - General Adult General Date Seen: 03/18/25 Chief complaint: Hip Injury/Pain Stated complaint: L hip pain Time Seen by Provider: 03/18/25 17:37 Source: patient Mode of arrival: ambulatory Limitations: no limitations History of Present Illness HPI narrative: patient is an 85-year-old female presenting to emergency department for left hip pain. She states pain 1st started this morning while she was doing her home exercises. She states she does bridge is an when she was doing it with her left leg she suddenly felt some pain to her left hip. Pain seems to be on the lateral aspect of the hip. States she with a 1 [address] ride to the [email or web address] and by 11:00 was unable to bear weight at than the car right due to the pain. Denies any numbness or tingling. Pain does not radiate. Pain has not occurred here before. No injuries or falls that she is aware of. No history of blood clots. Has not noticed any lower extremity swelling. No other concerns noted Related Data Home Medications ?Medication ?Instructions ?Recorded ?Confirmed metoprolol succinate 25 mg 25 mg PO DAILY 08/01/23 03/18/25 tablet,extended release 24 hr multivitamin 1 tab PO QAM 08/01/23 07/08/24 tocophersolan (vitamin E TPGS) PO 08/01/23 07/08/24 atorvastatin 20 mg tablet 20 mg PO 07/08/24 07/08/24 loratadine 10 mg capsule (Allergy 10 mg PO DAILY 03/18/25 03/18/25 Relief (loratadine)) Allergies Allergy/AdvReac Type Severity Reaction Status Date / Time milk Allergy Verified 03/18/25 17:42 Sulfa (Sulfonamide Allergy Verified 03/18/25 17:42 Antibiotics) Review of Systems Narrative: Pertinent systems reviewed and were negative unless stated in HPI PFSH PFSH Social History Smoking Status: Never smoker How often do you have a drink containing alcohol: never AUDIT-C Alcohol total score: 0 Non-prescribed substance use: denies use Exam Narrative: Exam Narrative: Const: Well-nourished, Well-developed, in mild distress Eyes: PERRL, no conjunctival injection, and symmetrical lids HENT: Atraumatic external nose and ears. Moist mucous membranes. Neck: Symmetric, trachea midline, No thyromegaly. CVS: RRR, No murmurs or gallops. Peripheral pulses 2+ and equal in all extremities RESP: Unlabored respiratory effort. Clear to auscultation bilaterally. GI: Nontender/Nondistended, No rebound or guarding. MSK:Extremities w/o deformity, Normal Active ROM, tenderness noted to the left greater trochanter. No peripheral edema Skin: Warm, Dry. No rashes or lesions. Neuro: Normal Muscle tone, No focal neurological deficits. Psych: Awake, Alert, & Oriented x3. Appropriate mood and affect. Const: Vital Signs, click to edit/add: Vital Signs - 24 hr 03/18/25 17:44 Temperature 98.7 F Pulse Rate [Pulse Oximeter] 72 Respiratory Rate 18 Blood Pressure [Le ft Upper Arm] 141/67 H Pulse Oximetry 98 Oxygen Delivery Me thod Room Air Course Vital Signs Vital signs: Initial Vital Signs Temperature 98.7 F 03/18/25 17:44 Temperature Source Temporal Artery Scan 03/18/25 17:44 Pulse Rate 72 03/18/25 17:44 Pulse Rhythm Regular 03/18/25 17:44 Respiratory Rate 18 03/18/25 17:44 Blood Pressure 141/67 H 03/18/25 17:44 Blood Pressure Mean 91 03/18/25 17:44 Blood Pressure Position Supine 03/18/25 17:44 Pulse Oximetry 98 03/18/25 17:44 Oxygen Delivery Method Room Air 03/18/25 17:44 Vital Signs Temperature 98.7 F 03/18/25 17:44 Pulse Rate 72 03/18/25 17:44 Respiratory Rate 18 03/18/25 17:44 Blood Pressure 141/67 H 03/18/25 17:44 Pulse Oximetry 98 03/18/25 17:44 Oxygen Delivery Method Room Air 03/18/25 17:44 Temperature 98.7 F 03/18/25 17:44 Pulse Rate 72 03/18/25 17:44 Respiratory Rate 18 03/18/25 17:44 Blood Pressure 141/67 H 03/18/25 17:44 Pulse Oximetry 98 03/18/25 17:44 Oxygen Delivery Method Room Air 03/18/25 17:44 Medications Administered Medications: Discontinued Medications Generic Name Dose Route Start Last Admin Trade Name Freq PRN Reason Stop Dose Admin Ibuprofen 600 mg 03/18/25 18:04 04/17/25 18:08 Ibuprofen 200 Mg Tablet PO 03/18/25 18:05 600 mg ONCE ONE Administration Medical Decision Making MDM Narrative Medical decision making narrative: patient is an 85-year-old female presenting for left hip pain. The tenderness is right over the left greater trochanteric bursa. Seems most likely to be a trochanteric bursitis. My concern for DVT is very low. I will do an x-ray though to make sure there is no occult fractures. will give her ibuprofen for pain as she requested. X-ray returned showing no acute abnormalities. No other concerns noted. Imaging Data Left hip x-ray: Attestation: I have reviewed the pertinent imaging results. Radiologist's impression: Normal alignment. No acute fracture or acute osseous abnormalities are visualized. Right hip arthroplasty present in appropriate position. No left hip fracture. The hip joint appears preserved. No significant degenerative change Dictated by Allie Vallejo MD @ 03/18/2025 7:03:16 PM Discharge Plan Discharge Clinical Impression: Greater trochanteric bursitis of left hip Patient Disposition: Home, Self-Care Condition: Stable Instructions: Hip Bursitis (ED) Additional Instructions: take NSAIDs as needed for pain. NSAIDs include ibuprofen, naproxen, etc. also recommend resting it for the next few days to see if symptoms improve. You should continue to move around but not do any exercise or excessive bending. also use heat and ice to the area. His symptoms are not improving by next week follow-up with orthopedics or your PCP. Prescriptions: No Action metoprolol succinate 25 mg tablet extended release 24 hr 25 mg PO DAILY multivitamin Tablet 1 tab PO QAM tocophersolan (vitamin E TPGS) PO atorvastatin 20 mg tablet 20 mg PO Allergy Relief (loratadine) 10 mg capsule 10 mg PO DAILY Follow Up/Referrals: Deepa Villagran MD [Primary Care Provider] - Stand Alone Forms: [employer] Info Instructions
--- OUTSIDE RECORDS SUMMARY | 2025-03-18 18:56 | XMS_ITS | Clinical Summary ---
Author Organization [facility] Address [address] [place] [id number] Care Team Providers Care Brasswind Instrument Repairer Name Role Phone Deepa Villagran MD Primary [...] Department Care Team Description 03/18/2025 Nurse Triage [facility] [address] [place] [address] Deepa Villagran MD Hip Pain/problem 03/15/2025 Refill [facility] [address] [place] [address] Deepa Villagran MD Refill Request (Allergy Relief (Cetirizine)) 01/21/2025 Refill [facility] [address] [place] [address] Deepa Villagran MD Refill Request (Metoprolol Succinate) [...] Medical History Relation Name Comments Sudden Brother CT Cancer-breast Other 2 female cousi ns Relation [...] on file Legal Sex Female 6:30 AM FRAME EXPANDER Gender Identity Not on file Sexual Orientation Not on file Obstetrics History Last Filed Vital Signs Vital Sign Reading Time Taken Comments Blood Pressure 112/69 12/04/2024 1:10 PM FRAME EXPANDER Pulse 80 12/04/2024 1:10 PM FRAME EXPANDER Temperature 36.6 C (97.9 F) 02/04/2023 10:50 AM FRAME EXPANDER Respiratory Rate 18 01/25/2020 8:19 AM FRAME EXPANDER Oxygen Saturation 98% 12/04/2024 1:10 PM FRAME EXPANDER Inhaled Oxygen Concentration - - Weight 55.2 kg (121 lb 9.6 oz) 12/04/2024 1:10 P M FRAME EXPANDER Height 154.7 cm (5' 0.9) 2024 9:14 AM CDT Body Mass Index 23.05 2024 9:14 AM CDT Plan of Treatment Upcoming Encounters Date Type Department Care Team (Late st Contact Info) Description 04/13/2025 1:00 PM CDT Office Visit [facility] [address] [place] [address] Deepa Villagran MD [address] [place] [address] Health Maintenance Due Date Last Done Comments [...] 08/23/2020, Additional history exists Insurance [employer] [place] [employer] [place] ONLY Care Teams Brasswind Instrument Repairer Relationship Specialty Start Date End Date Deepa Villagran MD [address] [place], [place] [id number] PCP - General Family Practice 06/02/13
--- OUTSIDE RECORDS SUMMARY | 2025-03-18 18:57 | XMS_ITS | Clinical Summary ---
Author Organization [facility] Address [address] [place] [address] Care Team Providers Care Regional Refrigerated Cdl Truck Driver Name Role Phone Elsewhere, Pcp Primary Care Provider Unavailabl e Source Comments Patient records contain information from all sites at [facility]. For routine questions regarding patient records, call [phone] during business hours, M-F 8:00 AM - 5:00 PM Central Time. Record requests for emergency care only can be directed to [phone] at any time.[facility] Allergies Active Allergy Reactions Criticality Noted [...] often do you attend chur ch or judaism services? Never 02/24/2022 Do you belong to any clubs o r organizations such as spiritism groups, unions, fraternal or athletic groups, or [...] Answer Date Recorded PHQ-2 Score 0 02/28/2022 [facility] [place] of Occupat ional Health - Occupational Stress [...] place to sleep or slept in a detention (including now)? No 02/24/2022 Nutrition Answer Date [...] Sex Assigned at Female 12/28/2018 7:38 PM OD GRINDER OPERATOR Legal Sex Female 4:19 PM OD GRINDER OPERATOR Gender Identity Female 12/28/2018 7:38 PM OD GRINDER OPERATOR Sexual Orientation Straight 12/28/2018 7: 38 PM OD GRINDER OPERATOR Last Filed Vital Signs Vital Sign Reading Time Taken Comments Blood Pressure 122/77 04/24/2022 12:04 PM CDT Pulse 58 04/24/2022 12:04 PM CDT Temperature 36.6 C (97.9 F) 01/02/2019 8:00 AM OD GRINDER OPERATOR Respiratory Rate - - Oxygen Saturation - [...] this topic Medical Devices Implanted Type Area Sort Manager Device Identifier Shelf Expiration Date Model / Serial / Lot Conversions - Default Historical Implant Device Implanted:2015 (Quantity not on file) Hip Implant Hip Description:Device Status Te xt - Hip Imp. Right hip replacement done in [facility]. Misc Other Misc Other Breast Description:[employer] Insurance MEDICARE [facility] Care Teams Regional Refrigerated Cdl Truck Driver Relationship Specialty Start Date End Date Elsewhere, Pcp PCP - General Internal Medicine 02/09/22
--- OUTSIDE RECORDS SUMMARY | 2025-03-18 18:57 | XMS_ITS | Encounter Summary ---
Author Organization [facility] Address [address] [place] [address] Care Team Providers Care Shellfish Manager Name Role Phone Elsewhere, Pcp Primary Care Provider Unavailabl e Encounter Details Date Type Department Care Team (Late st Contact Info) Description 01/26/2013 Historical Ophthalmology [facility] Jeff Huizar M.D. [address] [place] [phone] Social History Tobacco Use Types Packs/Day Years Used Date Smoking Tobacco: Never Assessed Comments Unknown Sex and Gender Information Value Date Recorded Sex Assigned at Female 12/28/2018 7:38 PM CLINICAL REHAB SPECIALIST Legal Sex Female 4:19 PM CLINICAL REHAB SPECIALIST Gender Identity Female 12/28/2018 7:38 PM CLINICAL REHAB SPECIALIST Sexual Orientation Straight 12/28/2018 7: 38 PM CLINICAL REHAB SPECIALIST documented as of this encounter Progress Notes [...] #3 cataracts CDM Reports - EYEGEN Id: [id number] Status: Fnl documented in this encounter Plan of Treatment Not on file documented as of this encounter Visit Diagnoses Not on filedocumented in this encounter Additional Health Concerns Infection Onset Date Last Indicated Resolved Time COVID19 Pending 02/21/2021 02/21/2021 02/21/2021 8 :00 PM CDT documented as of this encounter Care Teams Shellfish Manager Relationship Specialty Start Date End Date Elsewhere, Pcp PCP - General Internal Medicine 02/09/22 documented as of this encounter
== END 2025-03-18 19:20 | disposition home or self-care (01) ==
PROVIDERS: Emergency Provider Student in an Organized Health Care Education/Training Program; PCP Family Medicine
DX: M70.62 Trochanteric bursitis, left hip (principal)
CPT/HCPCS: 73502; 99283; A9270

== ENCOUNTER 2025-09-07 17:07 | Outpatient (CLI) | payer MEDICARE, BC, SELFPAY | END 2025-09-07 17:08 | disposition home or self-care (01) | PROVIDERS: PCP Family Medicine; Visit Provider Physician Assistant | DX: M79.644 Pain in right finger(s) (principal) | CPT/HCPCS: 84550; 85651; 86140 ==